=== PATIENT | female | born 1970 | race Caucasian/White ===

== ENCOUNTER → 2018-01-21 10:59 | Outpatient (CLI) | payer BC, SELFPAY ==
--- NOTE | 2018-01-21 | EMB_PTH ---
PATIENT: SOAugust LOC: [facility] U#:[id number] AGE/SX: 54/F ROOM: RE01/21/[address]: Dr. Germán Martínez MD : 1970 BED: DIS: SPEC #: [id number] RECD: 01/22/18 13:23 STATUS: KASH KIKA #: [id number] MARIA DEL ROSARIO: 01/21/18 00:[address]: Germán Martínez DEPT: SURGICAL PATHOLOGY RECD BY: Harjit Wylie Tissues: Endometrium, NOS Procedures: Surgery Specimen Level IV HEADER OPERATION: Endometrial biopsy PRE-OP DIAGNOSIS: N92.0 TISSUE SUBMITTED: Endometrial biopsy MICROSCOPIC DIAGNOSIS Endometrium, biopsy: Weakly proliferative endometrium. No evidence of hyperplasia. AM:joseluis 01/23/18 MICROSCOPIC DESCRIPTION Slides are reviewed. GROSS DESCRIPTION Received in fixative is one container labeled with the patient's name and designated endometrial biopsy. The specimen consists of multiple irregular and elongated fragments of red-pandya soft tissue that in aggregate measure 2.2 x 2 x 0.2 cm. The specimen is totally submitted in one cassette. / AM:joseluis 01/22/18 TC:5 CPT: 74237
[2018-01-24 14:26] LABS: HPV Reflexed? NOT INDICATED
== END ==
PROVIDERS: Visit Provider Obstetrics & Gynecology
DX: Z12.4 Encounter for screening for malignant neoplasm of cervix (principal); N92.0 Excessive and frequent menstruation with regular cycle
CPT/HCPCS: 88175; 88305; G0145

== ENCOUNTER 2018-04-28 07:55 | Day surgery (SDC) | payer BC, SELFPAY ==
[2018-04-23 17:22] LABS: Hematocrit 39.2 % (37-47); Mean Corp Hgb Conc 33.2 g/gl (32-36); Mean Corpuscular Hgb 30.2 pg (27.0-32.0); Mean Platelet Vol. 10.3 fl (6.2-12.0); Platelet Count 301 K/mm3 (150-450); RBC Distribution Width CV 13.1 % (11.6-14.6); Red Blood Count 4.31 M/mm3 (4.2-5.4); White Blood Count 11.2 K/mm3 (4.4-11.0)
[2018-04-23 17:34] LABS: Scan Indicated on CBC? Y/N NO
[2018-04-23 17:36] LABS: Creatinine, Serum 0.91 mg/dL (0.55-1.02); EST Glomerular Filtration Rate 71 mL/min (>60); Est Glom Filt Rate - Afr Amer 86 mL/min (>60)
[2018-04-23 17:55] LABS: International Normalized Ratio 1.1; Prothrombin Time (Protime)PT. 13.8 SECONDS (11.7-14.9)
[2018-04-23 17:56] LABS: Partial Thromboplast Time 27.1 Seconds (24.1-36.2)
--- NOTE | 2018-04-26 14:45 | HP.PCM_ITS ---
History and Physical Date of Admission: 04/28/18 Surgical History and Physical Zahra Rene, a 47 year old female 2 0 0 0 2, presents for RAVH/BSO on April 28, 2018 at 10:30. -- Pelvic pressure, menorrhagia, fibroids s/p HTA -- Menorrhagia which began about a year ago. August claims it started gradually. It occurs intermittently. August characterizes the quality not painful. Severity is moderate and worsening; Associated signs and symptoms are Irregular menses, Menorrhagia. MEDICATIONS HISTORY: Patient is also takin. lisinopril 5 mg Tablet, One pill by mouth once a day 2. metoprolol succinate 50 mg Tablet Extended Release 24 hr, 1/2 tab once daily 3. Lipitor 20 mg tablet, 1 qd ALLERGIES: NKDA Infections - Chicken pox Illnesses - Hypertention Accidents - None Hospitalizations - see surgery Review of Systems: GENERAL - Denies fever, or chills SKIN - Denies skin changes EYES - Denies visual changes EARS - Denies difficulty hearing NOSE - Denies nasal congestion or bleeding MOUTH - Denies sore throat or difficulty swallowing NECK - Denies pain or swelling RESPIRATORY - Denies shortness of breath or wheezing CARDIOVASCULAR - Denies palpitations or chest pain GASTROINTESTINAL - Denies nausea, vomiting, diarrhea, constipation GENITOURINARY - Denies dysuria, frequency of urination, incontinence of urine MUSCULOSKELETAL - Denies joint or muscle pain NEUROLOGICAL - Denies localized numbness or weakness PSYCHIATRIC - Denies depression or anxiety ENDOCRINE - Denies heat or cold intolerance, weight loss or gain HEMATO-IMMUNOLOGIC - Denies excessive bleeding with cuts SOCIAL HISTORY: Alcohol Use - drinks occasionally Smoking - Never Diet - no special diet Lifestyle - moderate stress lifestyle and Exercise - regular Seat Belt Use - always 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 Paternal Grandmother: DM II. MENSTRUAL HISTORY: LMP Known?- YesAmount/Duration - 2-3 days light, Regularity - Irregular, Frequency - variable days, LMP - 02/15/18, Age Onset Menarche - 15 PAST PREGNANCIES: Total Pregnancies - 2; Full Term Pregnancies - 2; Premature - 0; Abortions, Induced - 0; Abortions, Spontaneous - 0; Ectopics - 0; Multiple Births - 0; Living Children - 2 SURGICAL HISTORY: 1. T and A, 1984 2. 12/04/2011 BRIAN ; Germán Martínez M.D. PHYSICAL EXAM BP- 138/84 Sitting, Right arm, regular cuff Weight- 229.10196 lbs Height- 65 inch BMI:38.19 CONSTITUTIONAL - NAD, well nourished, and well developed SKIN - No rash, lesions, or ulcers HEENT - Normocephalic, PERRLA, EOMI NECK - No nodes, no nuchal rigidity and thyroid normal size and texture LYMPH NODES - Palpation of lymph nodes in neck and groins within normal limits LUNGS - CTA x2 without wheezes, crackles or rales CARDIAC - Regular rate and rhythm without rubs, murmurs, or gallops BREAST - No dominant masses, no tenderness, no axillary adenopathy, no nipple discharge, no skin changes ABDOMEN - Without hepatosplenomegaly, distention, masses, rebound, or guarding; normal bowel sounds; no hernias EXTREMITIES - No edema or calf tenderness NEUROLOGICAL - Cranial nerves II-XII grossly intact PSYCHIATRIC - A and O to time, place, person, mood and affect DETAILED PELVIC EXAM External Genital Vagina - non-tender without lesions Urethra/Urethral Meatus - non-tender Bladder - non-tender Vagina - vaginal parsons are pink and moist without loss of rugae and no evidence of atropy Cervix - without cervical motion tenderness and has normal size and features without evident lesions and minimal decensus of uterine cervix Uterus - enlarged uterus 8 wks, wt 125-150g Adnexa - clear without massess or tenderness ASSESSMENT/PLAN: 1. Leiomyoma, Unspec and Menorrhagia S/P endometrial ablation. Fibroids also causing low back pain and pressure symptoms. Pt desires definitive treatment with RAVH/BSO. Discussed RBAs and all questions answered. Also discussed need for HRT for an indefinite period of time.
[2018-04-28] VITALS (11 sets, daily range): BP systolic 109–152; BP diastolic 60–93; PULSE 48–68; RESP 16–18; TEMP 36.3–37.1; O2SAT 92–98; BMI 38.1
[2018-04-28 08:15] LABS: Internal QC Validated? YES +Cl - CLEAR BKGD; Pregnancy, Urine Negative Negative
[2018-04-28 09:06] LABS: Bedside Glucose 115 mg/dL (70-110)
--- NOTE | 2018-04-28 10:10 | HYST_PTH ---
PATIENT: SOAugust LOC: [facility] [place] U#:[id number] AGE/SX: 47/F ROOM: RE04/28/[address]: Dr. Germán Martínez MD : 1970 BED: DIS: 04/29/2018 SPEC #: [id number] RECD: 04/28/18 15:32 STATUS: KASH ANAND #: [id number] MARIA DEL ROSARIO: 04/28/18 10:[address]: Germán Martínez DEPT: SURGICAL PATHOLOGY RECD BY: Familia Alcocer ENTERED: 04/29/18 08:42 SP TYPE: HYSTERECT OTHR DR: Dr. Silas Sam MD Tissues: Uterus, NOS Procedures: Surgery Specimen Level V HEADER OPERATION: Lap robotic hysterectomy, BSO PRE-OP DIAGNOSIS: Leiomyoma, menorrhagia, fibroids TISSUE SUBMITTED: Uterus, cervix, bilateral fallopian tubes and ovaries MICROSCOPIC DIAGNOSIS Uterus, cervix, bilateral fallopian tubes and ovaries, hysterectomy and bilateral salpingo-oophorectomy: Cervix - chronic cystic cervicitis with tunnel cluster formation. Endometrium - proliferative endometrium. Myometrium - intramural and subserosal leiomyomas (largest measuring 3.5 cm in greatest dimension). - Focal adenomyosis. Bilateral fallopian tubes - no pathologic diagnosis. Bilateral ovaries - physiologic follicular cysts. Right paratubal cyst. SJ:joseluis 04/30/18 MICROSCOPIC DESCRIPTION Slides are reviewed. GROSS DESCRIPTION Received in fixative is one container labeled with the patient's name and designated uterus, cervix, bilateral fallopian tubes and ovaries. The specimen consists of a hysterectomy specimen consisting of uterus with cervix and attached bilateral fallopian tubes and ovaries. The uterus with cervix measures 12 x 9 x 6 cm and weighs 252 gm. The serosal surface is pandya, glistening. The ectocervical mucosa is unremarkable. External os is oval in contour. The endocervical canal measures 3 cm in length and the endocervical mucosa is pandya, glistening and unremarkable. Sections of the cervix reveal a few cysts filled with mucoid material. The endometrial cavity is narrow and measures 6 cm in length and up to 0.5 cm in width. Sections of the uterine wall reveal multiple intramural and subserosal nodular masses. The largest mass measures 4 cm in greatest dimension. Sections of these masses reveal pandya whorled cut surfaces without areas of hemorrhage, necrosis or cystic degeneration. Sections of the uterine wall also reveal trabeculated cut surfaces, suspicious for adenomyosis and it measures up to 3.5 cm in thickness. The right fallopian tube measures 9 cm in length and up to 0.8 cm in diameter. The fimbrial end is identified. No tubo-ovarian adhesions are noted. A paratubal cyst is noted measuring 1.5 cm in greatest dimension. The right ovary measures 3 x 3 x 2.5 cm. Sections reveal a cyst filled with pink-red fluid and measuring 2 cm in greatest dimension. A hemorrhagic cyst is also noted measuring 1.5 cm in greatest dimension. The left fallopian tube measures 8 cm in length and 0.7 cm in diameter. Focal tubo-ovarian adhesions are noted. The fimbrial end is identified. Sections of the fallopian tube also show a metallic coiled device in the proximal portion of the tube consistent with Essure device. The left ovary is partly disrupted and measures 3 x 3 x 2 cm. Sections reveal a collapsed hemorrhagic cyst measuring 3 cm in greatest dimension. Cloth Winder Machine Operator sections are submitted in 15 cassettes as follows: 1 - anterior cervix, 2 - posterior cervix, 3 & 4 - anterior uterine wall, 5 & 6 - posterior uterine wall, 7 & 8 - smaller and intermediate sized nodular masses, 9 - largest nodular mass, 10 - right fallopian tube and paratubal cyst, 11 & 12 - right ovary, 13 - left fallopian tube, 14 & 15 - left ovary. / SERG:joseluis 04/29/18 TC:1 CPT: 47428
[2018-04-28] MEDS: Ropivacaine 0.5% 30 ML Vial (11:58)
--- NOTE | 2018-04-28 14:32 | PCM.OPRPT ---
Report of Operation Date of Procedure: 04/28/18 Pre-Operative Diagnosis: Pelvic Pressure, Fibroids, Enlarged Uterus Post-Operative Diagnosis: Pelvic Pressure, Fibroids, Enlarged Uterus, Adhesions Surgery/Procedure Performed:: Robotic Assisted Vaginal Hysterectomy, Bilateral Salpingo-Oophorectomy, Lysis of Adhesions Description of Surgical Findings:: 14 cm fibroid uterus with normal-appearing right adnexa and left adnexa with dense adhesions from the left pelvic sidewall and sigmoid to the left ovary. Dense adhesions of left ovary to posterior aspect of the uterus. Adhesions of the omentum to the left pelvic sidewall and adnexa. barrel charrer helper: Shy Strong barrel charrer helper: Bianca Perez Type of Anesthesia:: General Anesthesiologist: Jg Wolff Specimen's removed: Uterus, bilateral fallopian tubes and ovaries Drains: Greenberg to straight drain Estimated Blood Loss (mL): 100 cc Fluids Replaced: Crystalloid Description of Procedure: Surgeon: Germán Martínez MD, FACOG Indication: This is a 47 year old patient who has been having problems with pelvic pressure and heavy menses despite having a prior endometrial ablation done. Ultrasound shows an enlarged fibroid uterus. Conservative measures have not been helpful. The patient has been counseled regarding the risks, benefits and alternatives of this procedure including the possibility of bleeding, infection, and injury to surrounding structures such as bowel bladder and all questions were answered. She understands that with BSO she may need to be on HRT for an indefinite period of time. Procedure: Pt taken to the operating room where after induction of general anesthesia the patient was prepped and draped in the usual sterile fashion and placed on a non-slip Huggy-u-vac device. Trendendelenburg test was satisfactory. Bladder was drained of urine with a Greenberg catheter which was left in place. Anterior cervix grasped and cervix was dilated to about 3-4 mm. Uterus sounded to 12 cms with a nonmovable posterior and high cervix noted. 0-Vicryl suture was placed at the 3:00 and 9:00 position of the cervix. A medium V-care device was then placed in the uterus to allow uterine manipulation and attention was turned to the laparoscopic portion of the procedure. Ropivocaine 0.5% was injected approximately 3 cm superior to the umbilicus and an 8 mm robotic camera port was introduced directly with intraperitoneal placement confirmed with insufflation. 8 mm robotic side ports were introduced under direct visualization approximately 12 cm lateral and 2 cm inferior to the umbilical port. A 5 mm left upper quadrant port was introduced and airseal insufflation with CO2 was started. The above findings were noted. Robot was docked without difficulty and attention turned to the robotic portion of the procedure. Approximately 30 cc of Ropivicaine was used. Bilateral infundibulocal ligaments/mesosalpinx were ligated with 35 carrillo bipolar coagulation to the level of the round ligament after peeling down adhesions between the left ovary and rectosigmoid. The posterior aspect of the cervix was but we were unable to open this area due to uncertainty of where the V care device was in the vagina. Bladder flap was opened and divided to the level of the round ligaments using monopolar cautery. Progressive bites were then ligated on each side of the cervix with 35 carrillo bipolar cautery to the uterine arteries. The anterior vaginal mucosa was then entered and cervix circumscribed with monopolar cautery. Uterus and attached ovaries and tubes were then removed through the vagina. Vaginal cuff was closed first with 0-Vicryl Candelario stitches placed at each angle followed by closure of the mid-cuff with 0-Monocryl V-lock suture in two layers. Pelvis was copiously irrigated with saline and the right ureter was noted to peristalse. The area of released adhesions were examined. The omental adhesions were cauterized to affect hemostasis and the area of the sigmoid colon and left ovary were examined and irrigated. FloSeal was placed across the 0 to help with the operative hemostasis. Robot was undocked and trocars were removed with as much gas as possible. Incisions were closed with 4-0 Monocryl subcuticular sutures and incisions covered with steri-strips and opsite dressing. The patient tolerated the procedure well and was taken to the recovery room in satisfactory condition. Sponge, instruments and needle counts were all correct. There were no apparent complications of the surgery. Cefotan 2 gms IV was given prior to the procedure. Grafts/Implants Used: None - Complications None - Admit VTE Documentation VTE Present on Admission: Yes VTE Mechan Device Prophylaxis: SCD's VTE Pharm Prophylaxis ordered?: Yes
--- NOTE | 2018-04-28 14:36 | OP.PCM_ITS ---
Report of Operation Date of Procedure: 04/28/18 Pre-Operative Diagnosis: Pelvic Pressure, Fibroids, Enlarged Uterus Post-Operative Diagnosis: Pelvic Pressure, Fibroids, Enlarged Uterus, Adhesions Surgery/Procedure Performed:: Robotic Assisted Vaginal Hysterectomy, Bilateral Salpingo-Oophorectomy, Lysis of Adhesions Description of Surgical Findings:: 14 cm fibroid uterus with normal-appearing right adnexa and left adnexa with dense adhesions from the left pelvic sidewall and sigmoid to the left ovary. Dense adhesions of left ovary to posterior aspect of the uterus. Adhesions of the omentum to the left pelvic sidewall and adnexa. rn clinical coordinator: Shy Strong rn clinical coordinator: Bianca Perez Type of Anesthesia:: General Anesthesiologist: Jg Wolff Specimen's removed: Uterus, bilateral fallopian tubes and ovaries Drains: Greenberg to straight drain Estimated Blood Loss (mL): 100 cc Fluids Replaced: Crystalloid Description of Procedure: Surgeon: Germán Martínez MD, FACOG Indication: This is a 47 year old patient who has been having problems with pelvic pressure and heavy menses despite having a prior endometrial ablation done. Ultrasound shows an enlarged fibroid uterus. Conservative measures have not been helpful. The patient has been counseled regarding the risks, benefits and alternatives of this procedure including the possibility of bleeding, infection, and injury to surrounding structures such as bowel bladder and all questions were answered. She understands that with BSO she may need to be on HRT for an indefinite period of time. Procedure: Pt taken to the operating room where after induction of general anesthesia the patient was prepped and draped in the usual sterile fashion and placed on a non-slip Huggy-u-vac device. Trendendelenburg test was satisfactory. Bladder was drained of urine with a Greenberg catheter which was left in place. Anterior cervix grasped and cervix was dilated to about 3-4 mm. Uterus sounded to 12 cms with a nonmovable posterior and high cervix noted. 0- Vicryl suture was placed at the 3:00 and 9:00 position of the cervix. A medium V-care device was then placed in the uterus to allow uterine manipulation and attention was turned to the laparoscopic portion of the procedure. Ropivocaine 0.5% was injected approximately 3 cm superior to the umbilicus and an 8 mm robotic camera port was introduced directly with intraperitoneal placement confirmed with insufflation. 8 mm robotic side ports were introduced under direct visualization approximately 12 cm lateral and 2 cm inferior to the umbilical port. A 5 mm left upper quadrant port was introduced and airseal insufflation with CO2 was started. The above findings were noted. Robot was docked without difficulty and attention turned to the robotic portion of the procedure. Approximately 30 cc of Ropivicaine was used. Bilateral infundibulocal ligaments/mesosalpinx were ligated with 35 carrillo bipolar coagulation to the level of the round ligament after peeling down adhesions between the left ovary and rectosigmoid. The posterior aspect of the cervix was but we were unable to open this area due to uncertainty of where the V care device was in the vagina. Bladder flap was opened and divided to the level of the round ligaments using monopolar cautery. Progressive bites were then ligated on each side of the cervix with 35 carrillo bipolar cautery to the uterine arteries. The anterior vaginal mucosa was then entered and cervix circumscribed with monopolar cautery. Uterus and attached ovaries and tubes were then removed through the vagina. Vaginal cuff was closed first with 0- Vicryl Candelario stitches placed at each angle followed by closure of the mid-cuff with 0-Monocryl V-lock suture in two layers. Pelvis was copiously irrigated with saline and the right ureter was noted to peristalse. The area of released adhesions were examined. The omental adhesions were cauterized to affect hemostasis and the area of the sigmoid colon and left ovary were examined and irrigated. FloSeal was placed across the 0 to help with the operative hemostasis. Robot was undocked and trocars were removed with as much gas as possible. Incisions were closed with 4-0 Monocryl subcuticular sutures and incisions covered with steri-strips and opsite dressing. The patient tolerated the procedure well and was taken to the recovery room in satisfactory condition. Sponge, instruments and needle counts were all correct. There were no apparent complications of the surgery. Cefotan 2 gms IV was given prior to the procedure. Grafts/Implants Used: None - Complications None - Admit VTE Documentation VTE Present on Admission: Yes VTE Mechan Device Prophylaxis: SCD's VTE Pharm Prophylaxis ordered?: Yes
--- NOTE | 2018-04-28 14:45 | DCINST_ITS ---
Discharge Diet: No Restrictions Discharge Activity: Return to Normal Activity, May Not Drive - while taking narcotic pain medications., May Shower May resume sexual activity in: 6-8 weeks Call your doctor if your incision/area has: Continuous Slow Oozing, Sudden Increased Bleeding, Increased Pain/ Swelling, Increased Redness, Foul Smelling Discharge Call your doctor if you observe: Fever of 101 or Higher, Inability to urinate, Inability to have a bowel movement, Using more than one pad per hour Allergies/Adverse Reactions: Allergies No Known Allergies Allergy (Verified 04/21/18 15:02) Medications to take at Discharge Atorvastatin Calcium [Lipitor] 20 mg PO QHS 04/21/18 Lisinopril [Zestril] 5 mg PO DAILY 04/21/18 Metoprolol Tartrate [Lopressor (Beta Marguerite)] 25 mg PO DAILY 04/21/18 Docusate Sodium [Colace] 100 mg PO BID PRN PRN #60 cap 04/28/18 Estradiol 2 mg PO DAILY #100 tab 04/28/18 Oxycodone [Oxyir] 5 mg PO Q6H PRN PRN 7 Days #20 tab 04/28/18 The following prescriptions were given: Oxycodone [Oxyir] 5 mg PO Q6H PRN PRN 7 Days #20 tab PRN Reason: Severe Pain (-03/05) Docusate Sodium [Colace] 100 mg PO BID PRN PRN #60 cap PRN Reason: Constipation Estradiol 2 mg PO DAILY #100 tab Orders to be completed after discharge: Type & Screen Time Frame: 04/23/18, Location: None Selected Primary Care Physician: Silas Sam [Primary Care Provider] - Test Results: Test results from this visit will be discussed in further detail at your follow- up appointment, if applicable. Please Follow Up With: Germán Martínez MD When: 2-3 weeks
[2018-04-28] MEDS: Dextrose 5%-Lactated Ringers 1,000 ML 150 ML IV ×2 (16:12→22:36)
[2018-04-28] MEDS: 0.9% NaCl Peripheral Flush Adult/Peds IV (17:25)
[2018-04-28] MEDS: Ketorolac 30 MG/ML Syringe IV (17:25)
[2018-04-28] MEDS: Enoxaparin 30 MG/0.3 ML Syringe SC (17:25)
[2018-04-28] MEDS: Atorvastatin Calcium 20 MG Tablet PO (22:36)
[2018-04-29] MEDS: Ketorolac 30 MG/ML Syringe IV (00:19)
[2018-04-29] MEDS: 0.9% NaCl Peripheral Flush Adult/Peds IV (00:20)
[2018-04-29 02:07] VITALS: BP 115/63; PULSE 81; RESP 16; TEMP 36.8; O2SAT 93
[2018-04-29] MEDS: Ketorolac 10 MG Tablet PO (05:45)
[2018-04-29 06:02] LABS: Hematocrit 34.9 % (37-47); Hemoglobin 11.6 g/dl (12.0-15.0); Mean Corp Hgb Conc 33.2 g/gl (32-36); Mean Corpuscular Hgb 30.6 pg (27.0-32.0); Mean Corpuscular Volume 92.1 fL (81-99); Mean Platelet Vol. 10.5 fl (6.2-12.0); Platelet Count 255 K/mm3 (150-450); RBC Distribution Width CV 13.4 % (11.6-14.6); Red Blood Count 3.79 M/mm3 (4.2-5.4); White Blood Count 17.2 K/mm3 (4.4-11.0)
[2018-04-29 06:08] LABS: Scan Indicated on CBC? Y/N NO
[2018-04-29 06:10] LABS: Creatinine, Serum 1.11 mg/dL (0.55-1.02); EST Glomerular Filtration Rate 56 mL/min (>60); Est Glom Filt Rate - Afr Amer 68 mL/min (>60); Estimated Creatinine Clearance 57.59 ml/min
[2018-04-29 06:43] VITALS: O2SAT 93
[2018-04-29 07:08] VITALS: BP 123/70; PULSE 59; RESP 16; TEMP 36.8; O2SAT 96
[2018-04-29 07:14] VITALS: PULSE 59
--- NOTE | 2018-04-29 08:41 | PN.OBGYN_ITS ---
Subjective: Patient without complaints. Tolerating diet well. Positive flatus. Pain well controlled. Minimal vaginal bleeding. - Physical Exam Vital Signs AF, VSS Temp Pulse Resp BP Pulse Ox 98.3 F 59 L 16 123/70 H 96 04/29/18 07:08 04/29/18 07:14 04/29/18 07:08 04/29/18 07:08 04/29/18 07:08 Oxygen Flow Rate (L/min) 1 Oxygen Delivery Method Room Air Weight: 229 lb 4.492 oz Body Mass Index (BMI) 38.1 Intake and Output for Last 24 Hours 04/27/18 04/28/18 04/29/18 23:59 23:59 23:59 Intake Total 3241 / 3241 2726 / 2726 Output Total 1055 / 1055 725 / 725 Balance 2186 / 2186 2000 Laboratory Tests Past 24 Hrs 04/29/18 04/29/18 05:35 05:35 WBC 17.2 H RBC 3.79 L Hgb 11.6 L Hct 34.9 L MCV 92.1 MCH 30.6 MCHC 33.2 RDW 13.4 RDW Differential 44.0 H Plt Count 255 MPV 10.5 Creatinine 1.11 H Estim Creat Clear Calc 57.59 Est GFR (MDRD) Af Amer 68 Est GFR (MDRD) Non-Af 56 L POC Glucose 04/28/18 08:28 POC Glucose 115 H Wounds are clean, dry, intact. Good urine output. Hemoglobin and creatinine okay. Medical Necessity - Tobacco Use Smoking Status: Never smoker Assessment/Plan Doing well postoperative day #1 status post robotic assisted vaginal hysterectomy and bilateral salpingo-oophrectomy. Will release to home with rout ine instructions.
[2018-04-29 09:04] VITALS: PULSE 58
[2018-04-29] MEDS: Lisinopril 5 MG Tablet PO (09:04)
--- OUTSIDE RECORDS SUMMARY | 2018-06-21 07:32 | XMS RPT_ITS ---
:1970 Author Organization OHIP Care Team Providers Name Role Phone Germán Martínez Attending Unavailable Germán Martínez Referring Unavailable Germán Martínez Attending Unavailable Germán Martínez Referring Unavailable Silas Sam Primary Care Unavailable PROBLEMS PROBLEMS DATE TYPE CONDITION / CODE ATTENDING STATUS SOURCE 04/29/2018 Unknown G89.18 - Other acute Germán Martínez postprocedural pain Community / G89.18(ICD-10) Hospital Repository 01/23/2018 Unknown N92.0 - Excessive Germán Martínez and frequent [facility] menstruation with [facility] regular cycle / Repository N92.0(ICD-10) 01/23/2018 Unknown Z12.4 - Encounter Germán Martínez for screening for [facility] malignant neoplasm [facility] cervix / Repository Z12.4(ICD-10) PROCEDURES PROCEDURES No Procedure Records FoundRESULTS RESULTS CBC-COMPLETE BLOOD CNT Collected: 04/29/2018 Status: F Source: CLAUDE NO DIFF 5:35 AM [facility] REPOSITORY TYPE CODE TESTS RESULT OUT OF RANGE REFERENCE UNITS LAB L100.1000 4.4-11.0 K/mm3 High WBC 17.2 LAB L100.1200 4.2-5.4 M/mm3 Low RBC 3.79 LAB L100.1300 12.0-15.0 g/dl Low HGB 11.6 LAB L100.1400 37-47 % Low HCT 34.9 LAB L100.1500 81-99 fL Normal MCV 92.1 LAB L100.1600 27.0-32.0 pg Normal MCH 30.6 LAB L100.1700 32-36 g/gl Normal MCHC 33.2 LAB L100.1810 11.6-14.6 % Normal RDW CV 13.4 LAB L100.1820 35.1-43.9 fl High RDW SD 44.0 LAB L100.1900 150-450 K/mm3 Normal PLT 255 LAB L100.2000 6.2-12.0 fl Normal MPV 10.5 Performed By: #### L100.0500 #### [facility] [address] [place], [address] SERUM CREATININE AND Collected: 04/29/2018 Status: F Source: ERNUL GFR 5:35 AM [facility] REPOSITORY TYPE CODE TESTS RESULT OUT OF RANGE REFERENCE UNITS LAB L501.1100 0.55-1.02 mg/dL High 1.11 CREAT,SERUM Result Comment: The validity of the calculated GFR AND GFRAA in patients over 70 years has not been determined. Clinical correlation is essential. LAB L501.1110 >60 mL/min Low EST GFR 56 Result Comment: Non- GFR Calc LAB L501.1115 >60 mL/min Normal EST GFR - AA 68 Result Comment: GFR Calc LAB L501.1255 ml/min Normal Estimated CRCL 57.59 Performed By: #### L501.1105 #### [facility] [address] [place], [address] DISCHARGE INSTRUCTION Observed: 04/28/2018 Status: F Source: CLAUDE 2:45 PM [facility] REPOSITORY [facility] Medical Records Department [address] [place] [address] Instructions for Home/Discharge Instructions 04/28/18 1444 MR#: [id number] Acct: [id number] Name: SOAugust Rep #: [id number] : 1970 47 From: Germán Martínez MD PCP: Silas Sam MD [place] [facility] [place] Diet: No Restrictions Discharge Activity: Return to Normal Activity, May Not Drive - while taking narcotic pain medications., May Shower May resume sexual activity in: 6-8 weeks Call your doctor if your incision/area has: Continuous Slow Oozing, Sudden Increased Bleeding, Increased Pain/ Swelling, Increased Redness, Foul Smelling Discharge Call your doctor if you observe: Fever of 101 or Higher, Inability to urinate, Inability to have a bowel movement, Using more than one pad per hour Allergies/Adverse Reactions: Allergies No Known Allergies Allergy (Verified 04/21/18 15:02) Medications to take at Discharge Atorvastatin Calcium [Lipitor] 20 mg PO QHS 04/21/18 Lisinopril [Zestril] 5 mg PO DAILY 04/21/18 Metoprolol Tartrate [Lopressor (Beta Marguerite)] 25 mg PO DAILY 04/21/18 Docusate Sodium [Colace] 100 mg PO BID PRN PRN #60 cap 04/28/18 Estradiol 2 mg PO DAILY #100 tab 04/28/18 Oxycodone [Oxyir] 5 mg PO Q6H PRN PRN 7 Days #20 tab 04/28/18 The following prescriptions were given: Oxycodone [Oxyir] 5 mg PO Q6H PRN PRN 7 Days #20 tab PRN Reason: Severe Pain (6-03/05) Docusate Sodium [Colace] 100 mg PO BID PRN PRN #60 cap PRN Reason: Constipation Estradiol 2 mg PO DAILY #100 tab Orders to be completed after discharge: Type AND Screen Time Frame: 04/23/18, Location: None Selected Primary Care Physician: Silas Sam [Primary Care Provider] - Test Results: Test results from this visit will be discussed in further detail at your follow-up appointment, if applicable. Please Follow Up With: Germán Martínez MD When: 2-3 weeks 04/28/18 1445 <Electronically signed by Germán Martínez MD> Date Germán Martínez MD CC: Silas Sam MD OPERATIVE REPORT Observed: 04/28/2018 Status: F Source: ERNUL 2:44 PM [facility] REPOSITORY [facility] Medical Records Department [address] [place] [address] Operative Report 04/28/18 1432 MR#: [id number] Acct: [id number] Name: SOZAHRA Wisam Rep #: [id number] : 1970 47 From: Germán Martínez MD PCP: Silas Sam MD Status: [facility] Y Location: MS2 ZL211-2 Report of Operation Date of Procedure: 04/28/18 Pre-Operative Diagnosis: Pelvic Pressure, Fibroids, Enlarged Uterus Post-Operative Diagnosis: Pelvic Pressure, Fibroids, Enlarged Uterus, Adhesions Surgery/Procedure Performed:: Robotic Assisted Vaginal Hysterectomy, Bilateral Salpingo-Oophorectomy, Lysis of Adhesions Description of Surgical Findings:: 14 cm fibroid uterus with normal-appearing right adnexa and left adnexa with dense adhesions from the left pelvic sidewall and sigmoid to the left ovary. Dense adhesions of left ovary to posterior aspect of the uterus. Adhesions of the omentum to the left pelvic sidewall and adnexa. casing blower: Shy Strong casing blower: Bianca Perez Type of Anesthesia:: General Anesthesiologist: Jg Wolff Specimen's removed: Uterus, bilateral fallopian tubes and ovaries Drains: Greenberg to straight drain Estimated Blood Loss (mL): 100 cc Fluids Replaced: Crystalloid Description of Procedure: Surgeon: Germán Martínez MD, FACOG Indication: This is a 47 year old patient who has been having problems with pelvic pressure and heavy menses despite having a prior endometrial ablation done. Ultrasound shows an enlarged fibroid uterus. Conservative measures have not been helpful. The patient has been counseled regarding the risks, benefits and alternatives of this procedure including the possibility of bleeding, infection, and injury to surrounding structures such as bowel bladder and all questions were answered. She understands that with BSO she may need to be on HRT for an indefinite period of time. Procedure: Pt taken to the operating room where after induction of general anesthesia the patient was prepped and draped in the usual sterile fashion and placed on a non-slip Huggy-u-vac device. Trendendelenburg test was satisfactory. Bladder was drained of urine with a Greenberg catheter which was left in place. Anterior cervix grasped and cervix was dilated to about 3-4 mm. Uterus sounded to 12 cms with a nonmovable posterior and high cervix noted. 0-Vicryl suture was placed at the 3:00 and 9:00 position of the cervix. A medium V-care device was then placed in the uterus to allow uterine manipulation and attention was turned to the laparoscopic portion of the procedure. Ropivocaine 0.5% was injected approximately 3 cm superior to the umbilicus and an 8 mm robotic camera port was introduced directly with intraperitoneal placement confirmed with insufflation. 8 mm robotic side ports were introduced under direct visualization approximately 12 cm lateral and 2 cm inferior to the umbilical port. A 5 mm left upper quadrant port was introduced and airseal insufflation with CO2 was started. The above findings were noted. Robot was docked without difficulty and attention turned to the robotic portion of the procedure. Approximately 30 cc of Ropivicaine was used. Bilateral infundibulocal ligaments/mesosalpinx were ligated with 35 carrillo bipolar coagulation to the level of the round ligament after peeling down adhesions between the left ovary and rectosigmoid. The posterior aspect of the cervix was but we were unable to open this area due to uncertainty of where the V care device was in the vagina. Bladder flap was opened and divided to the level of the round ligaments using monopolar cautery. Progressive bites were then ligated on each side of the cervix with 35 carrillo bipolar cautery to the uterine arteries. The anterior vaginal mucosa was then entered and cervix circumscribed with monopolar cautery. Uterus and attached ovaries and tubes were then removed through the vagina. Vaginal cuff was closed first with 0-Vicryl Candelario stitches placed at each angle followed by closure of the mid-cuff with 0-Monocryl V-lock suture in two layers. Pelvis was copiously irrigated with saline and the right ureter was noted to peristalse. The area of released adhesions were examined. The omental adhesions were cauterized to affect hemostasis and the area of the sigmoid colon and left ovary were examined and irrigated. FloSeal was placed across the 0 to help with the operative hemostasis. Robot was undocked and trocars were removed with as much gas as possible. Incisions were closed with 4-0 Monocryl subcuticular sutures and incisions covered with steri-strips and opsite dressing. The patient tolerated the procedure well and was taken to the recovery room in satisfactory condition. Sponge, instruments and needle counts were all correct. There were no apparent complications of the surgery. Cefotan 2 gms IV was given prior to the procedure. Grafts/Implants Used: None - Complications None - Admit VTE Documentation VTE Present on Admission: Yes VTE Mechan Device Prophylaxis: SCD's VTE Pharm Prophylaxis ordered?: Yes 04/28/18 5118 <Electronically signed by Germán Martínez MD> Date Germán Martínez MD CC: Gremán Martínez MD; Silas Sam MD Signed HYSTERECTOMY SPECIMEN Observed: 04/28/2018 Status: F Source: CLAUDE 10:10 AM [facility] REPOSITORY Patient: SO : 1970 (47/F) Acct Num: [id number] Phys: Mauricio ROBERSON,Germán Unit Num: [id number] [place] [facility] Specimen: [id number] Received: 04/28/181531 Spec Type: HYSTERECT TISSUES 1 TISSUES: Uterus, NOS GROSS DESCRIPTION Received in fixative is one container labeled with the patient's name and designated uterus, cervix, bilateral fallopian tubes and ovaries. The specimen consists of a hysterectomy specimen consisting of uterus with cervix and attached bilateral fallopian tubes and ovaries. The uterus with cervix measures 12 x 9 x 6 cm and weighs 252 gm. The serosal surface is pandya, glistening. The ectocervical mucosa is unremarkable. External os is oval in contour. The endocervical canal measures 3 cm in length and the endocervical mucosa is pandya, glistening and unremarkable. Sections of the cervix reveal a few cysts filled with mucoid material. The endometrial cavity is narrow and measures 6 cm in length and up to 0.5 cm in width. Sections of the uterine wall reveal multiple intramural and subserosal nodular masses. The largest mass measures 4 cm in greatest dimension. Sections of these masses reveal pandya whorled cut surfaces without areas of hemorrhage, necrosis or cystic degeneration. Sections of the uterine wall also reveal trabeculated cut surfaces, suspicious for adenomyosis and it measures up to 3.5 cm in thickness. The right fallopian tube measures 9 cm in length and up to 0.8 cm in diameter. The fimbrial end is identified. No tubo-ovarian adhesions are noted. A paratubal cyst is noted measuring 1.5 cm in greatest dimension. The right ovary measures 3 x 3 x 2.5 cm. Sections reveal a cyst filled with pink-red fluid and measuring 2 cm in greatest dimension. A hemorrhagic cyst is also noted measuring 1.5 cm in greatest dimension. The left fallopian tube measures 8 cm in length and 0.7 cm in diameter. Focal tubo-ovarian adhesions are noted. The fimbrial end is identified. Sections of the fallopian tube also show a metallic coiled device in the proximal portion of the tube consistent with Essure device. The left ovary is partly disrupted and measures 3 x 3 x 2 cm. Sections reveal a collapsed hemorrhagic cyst measuring 3 cm in greatest dimension. Ballast Regulator Operator sections are submitted in 15 cassettes as follows: 1 - anterior cervix, 2 - posterior cervix, 3 AND 4 - anterior uterine wall, 5 AND 6 - posterior uterine wall, 7 AND 8 - smaller and intermediate sized nodular masses, 9 - largest nodular mass, 10 - right fallopian tube and paratubal cyst, 11 AND 12 - right ovary, 13 - left fallopian tube, 14 AND 15 - left ovary. / SERG:joseluis 04/29/18 TC:1 CPT: 60218 HEADER OPERATION: Lap robotic hysterectomy, BSO PRE-OP DIAGNOSIS: Leiomyoma, menorrhagia, fibroids TISSUE SUBMITTED: Uterus, cervix, bilateral fallopian tubes and ovaries MICROSCOPIC DESCRIPTION Slides are reviewed. MICROSCOPIC DIAGNOSIS Uterus, cervix, bilateral fallopian tubes and ovaries, hysterectomy and bilateral salpingo-oophorectomy: Cervix - chronic cystic cervicitis with tunnel cluster formation. Endometrium - proliferative endometrium. Myometrium - intramural and subserosal leiomyomas (largest measuring 3.5 cm in greatest dimension). - Focal adenomyosis. Bilateral fallopian tubes - no pathologic diagnosis. Bilateral ovaries - physiologic follicular cysts. Right paratubal cyst. SJ:joseluis 04/30/18 Signed Michael Carlson 04/30/18 <signature on file> Performed By: #### PHYST #### [facility] [address] [place], [address] BEDSIDE GLUCOSE Collected: 04/28/2018 Status: F Source: CLAUDE 8:28 AM [facility] REPOSITORY TYPE CODE TESTS RESULT OUT OF REFERENCE UNITS RANGE LAB L501.080 70-110 mg/dL High BEDSIDE GLU 115 Result Comment: MANAGEMENT OF PATIENT CARE PER NURSING PROTOCOL Performed By: #### L501.080 #### [facility] Point of Care [address] [place] [address] ,URINE Collected: 04/28/2018 Status: F Source: ERNUL 8:05 AM [facility] REPOSITORY Order Comment: Reason for Laboratory Test PRE OP TYPE CODE TESTS RESULT OUT OF REFERENCE UNITS RANGE LAB L400.8000 Negative Normal HCGUQUAL Negative Result Comment: Very dilute urine specimens, as indicated by a low specific gravity, may not contain consumer sales representative levels of hCG. If is still suspected, a first morning urine specimen should be collected 48 hours later and tested. Performed By: #### L400.7600 #### [facility] [address] [facility] [place], [address] HISTORY AND PHYSICAL Observed: 04/26/2018 Status: F Source: CLAUDE EXAM 2:45 PM [facility] REPOSITORY [facility] Medical Records Department [address] [facility] [address] History and Physical 04/26/18 1443 MR#: [id number] Acct: [id number] Name: ZAHRA RIZZO Rep #: [id number] : 1970 47 From: Germán Martínez MD PCP: Silas Sam MD Status: [facility] [place] [facility] History and Physical Date of Admission: 04/28/18 Surgical History and Physical Zahra Rizzo, a 47 year old female 2 0 0 0 2, presents for RAVH/BSO on April 28, 2018 at 10:30. -- Pelvic pressure, menorrhagia, fibroids s/p HTA -- Menorrhagia which began about a year ago. August claims it started gradually. It occurs intermittently. August characterizes the quality not painful. Severity is moderate and worsening; Associated signs and symptoms are Irregular menses, Menorrhagia. MEDICATIONS HISTORY: Patient is also takin. lisinopril 5 mg Tablet, One pill by mouth once a day 2. metoprolol succinate 50 mg Tablet Extended Release 24 hr, 1/2 tab once daily 3. Lipitor 20 mg tablet, 1 qd ALLERGIES: NKDA Infections - Chicken pox Illnesses - Hypertention Accidents - None Hospitalizations - see surgery Review of Systems: GENERAL - Denies fever, or chills SKIN - Denies skin changes EYES - Denies visual changes EARS - Denies difficulty hearing NOSE - Denies nasal congestion or bleeding MOUTH - Denies sore throat or difficulty swallowing NECK - Denies pain or swelling RESPIRATORY - Denies shortness of breath or wheezing CARDIOVASCULAR - Denies palpitations or chest pain GASTROINTESTINAL - Denies nausea, vomiting, diarrhea, constipation GENITOURINARY - Denies dysuria, frequency of urination, incontinence of urine MUSCULOSKELETAL - Denies joint or muscle pain NEUROLOGICAL - Denies localized numbness or weakness PSYCHIATRIC - Denies depression or anxiety ENDOCRINE - Denies heat or cold intolerance, weight loss or gain HEMATO-IMMUNOLOGIC - Denies excessive bleeding with cuts SOCIAL HISTORY: Alcohol Use - drinks occasionally Smoking - Never Diet - no special diet Lifestyle - moderate stress lifestyle and Exercise - regular Seat Belt Use - always 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 Paternal Grandmother: DM II. MENSTRUAL HISTORY: LMP Known?- YesAmount/Duration - 2-3 days light, Regularity - Irregular, Frequency - variable days, LMP - 02/15/18, Age Onset Menarche - 15 PAST PREGNANCIES: Total Pregnancies - 2; Full Term Pregnancies - 2; Premature - 0; Abortions, Induced - 0; Abortions, Spontaneous - 0; Ectopics - 0; Multiple Births - 0; Living Children - 2 SURGICAL HISTORY: 1. T and A, 1984 2. 12/04/2011 [facility] ; Germán Martínez M.D. PHYSICAL EXAM BP- 138/84 Sitting, Right arm, regular cuff Weight- 229.79038 lbs Height- 65 inch BMI:38.19 CONSTITUTIONAL - NAD, well nourished, and well developed SKIN - No rash, lesions, or ulcers HEENT - Normocephalic, PERRLA, EOMI NECK - No nodes, no nuchal rigidity and thyroid normal size and texture LYMPH NODES - Palpation of lymph nodes in neck and groins within normal limits LUNGS - CTA x2 without wheezes, crackles or rales CARDIAC - Regular rate and rhythm without rubs, murmurs, or gallops BREAST - No dominant masses, no tenderness, no axillary adenopathy, no nipple discharge, no skin changes ABDOMEN - Without hepatosplenomegaly, distention, masses, rebound, or guarding; normal bowel sounds; no hernias EXTREMITIES - No edema or calf tenderness NEUROLOGICAL - Cranial nerves II-XII grossly intact PSYCHIATRIC - A and O to time, place, person, mood and affect DETAILED PELVIC EXAM External Genital Vagina - non-tender without lesions Urethra/Urethral Meatus - non-tender Bladder - non-tender Vagina - vaginal parsons are pink and moist without loss of rugae and no evidence of atropy Cervix - without cervical motion tenderness and has normal size and features without evident lesions and minimal decensus of uterine cervix Uterus - enlarged uterus 8 wks, wt 125-150g Adnexa - clear without massess or tenderness ASSESSMENT/PLAN: 1. Leiomyoma, Unspec and Menorrhagia S/P endometrial ablation. Fibroids also causing low back pain and pressure symptoms. Pt desires definitive treatment with RAVH/BSO. Discussed RBAs and all questions answered. Also discussed need for HRT for an indefinite period of time. 04/26/18 1445 <Electronically signed by Germán Martínez MD> Date Germán Martínez MD Cosigner Signature: Date (if applicable) CC: Germán Martínez MD; Silas Sam MD Signed CBC-COMPLETE BLOOD CNT Collected: 04/23/2018 Status: F Source: CLAUDE NO DIFF 4:55 PM [facility] REPOSITORY Order Comment: Reason for Laboratory Test PRE OP TYPE CODE TESTS RESULT OUT OF RANGE REFERENCE UNITS LAB L100.1000 4.4-11.0 K/mm3 High WBC 11.2 LAB L100.1200 4.2-5.4 M/mm3 Normal RBC 4.31 LAB L100.1300 12.0-15.0 g/dl Normal HGB 13.0 LAB L100.1400 37-47 % Normal HCT 39.2 LAB L100.1500 81-99 fL Normal MCV 91.0 LAB L100.1600 27.0-32.0 pg Normal MCH 30.2 LAB L100.1700 32-36 g/gl Normal MCHC 33.2 LAB L100.1810 11.6-14.6 % Normal RDW CV 13.1 LAB L100.1820 35.1-43.9 fl Normal RDW SD 43.0 LAB L100.1900 150-450 K/mm3 Normal PLT 301 LAB L100.2000 6.2-12.0 fl Normal MPV 10.3 Performed By: #### L100.0500 #### [facility] [address] [place], [place], [id number] SERUM CREATININE AND Collected: 04/23/2018 Status: F Source: ERNUL GFR 4:55 PM [facility] REPOSITORY Order Comment: Reason for Laboratory Test PRE OP TYPE CODE TESTS RESULT OUT OF RANGE REFERENCE UNITS LAB L501.1100 0.55-1.02 mg/dL Normal 0.91 CREAT,SERUM Result Comment: The validity of the calculated GFR AND GFRAA in patients over 70 years has not been determined. Clinical correlation is essential. LAB L501.1110 >60 mL/min Normal EST GFR 71 Result Comment: Non- GFR Calc LAB L501.1115 >60 mL/min Normal EST GFR - AA 86 Result Comment: GFR Calc Performed By: #### L501.1105 #### [facility] [address] [place], [place], [id number] PROTHROMBIN TIME W/INR Collected: 04/23/2018 Status: F Source: ERNUL 4:55 PM [facility] REPOSITORY Order Comment: Reason for Laboratory Test PRE OP TYPE CODE TESTS RESULT OUT OF RANGE REFERENCE UNITS LAB L300.4150 11.7-14.9 SECONDS Normal PROTIME 13.8 LAB L300.4200 Normal INR 1.1 Performed By: #### L300.3900, L300.4310 #### [facility] [address] [place], [place], [id number] PARTIAL THROMBOPLAST Collected: 04/23/2018 Status: F Source: CLAUDE TIME 4:55 PM [facility] REPOSITORY Order Comment: Reason for Laboratory Test PRE OP TYPE CODE TESTS RESULT OUT OF RANGE REFERENCE UNITS LAB L300.4310 24.1-36.2 Seconds Normal PTT 27.1 Performed By: #### L300.3900, L300.4310 #### [facility] [address] [place], [address] TYPE AND SCREEN Collected: 04/23/2018 Status: F Source: CLAUDE 4:55 PM [facility] REPOSITORY Order Comment: Surgery Date: 04/28/18 Hx of Preganancy in last 3 Months No Ever experience any problems with transfusion(s)? N Hx of Transfusion in last 3 Months N Reason for Type AND Screen/Red Cells: SURGERY Time: 0600 SURGICAL PROCEDURE: UNK TYPE CODE TESTS RESULT OUT OF RANGE REFERENCE UNITS LAB B10.0800 O Normal BLOOD TYPE GEL POSITIVE LAB B100.4000 Normal Antibody NEGATIVE Screen Performed By: #### B101.7475 #### [facility] [address] 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 of containers..01 ThinPrep Vial TYPE CODE TESTS RESULT OUT OF RANGE REFERENCE UNITS LAB L7400.0800 . Normal DIAGN Comment Result Comment: NEGATIVE FOR INTRAEPITHELIAL LESION AND MALIGNANCY. LAB L7400.0900 . Normal ADEQ Comment Result Comment: Satisfactory for evaluation. No endocervical component is identified. LAB L7400.1400 . Normal PERFORM Comment Result Comment: Akshat Sampson, Educational Manager (ASCP) LAB L7400.2575 . Normal TEST METHOD Comment Result Comment: This liquid based ThinPrep(R) pap test was screened with the use of an image guided system. LAB L7400.2600 . Normal . COMM LAB L7400.2700 . Normal PAPSMR Comment Result Comment: The Pap smear is a screening test designed to aid in the detection of premalignant and malignant conditions of the uterine cervix. It is not a diagnostic procedure and should not be used as the sole means of detecting cervical cancer. Both false-positive and false-negative reports do occur. LAB L7400.2800 . Normal HPV RFLX Comment Result Comment: The HPV DNA reflex criteria were not met with this specimen result therefore, no HPV testing was performed. Performed at: - [facility] [id number] Estate Tax Examiner: Brunilda Copeland MD, Phone: [phone] Performed By: #### L7400.0357 #### [facility] (refer to report for specific site) refer to report for address and phone number ENDOMETRIAL BX/CURETTINGS Observed: 01/21/2018 Status: F Source: ERNUL 12:00 AM [facility] REPOSITORY Patient: SO : 1970 (47/F) Acct Num: [id number] Phys: Mauricio ROBERSON,[facility] Num: [id number] Loc: LABSPEC Specimen: [id number] Received: 01/22/18 - 3 Spec Type: ENDOM BX/C TISSUES TISSUES: Endometrium, NOS GROSS DESCRIPTION Received in fixative is one container labeled with the patient's name and designated endometrial biopsy. The specimen consists of multiple irregular and elongated fragments of red-pandya soft tissue that in aggregate measure 2.2 x 2 x 0.2 cm. The specimen is totally submitted in one cassette. / AM:joseluis 01/22/18 TC:5 CPT: 32509 HEADER OPERATION: Endometrial biopsy PRE-OP DIAGNOSIS: N92.0 TISSUE SUBMITTED: Endometrial biopsy MICROSCOPIC DESCRIPTION Slides are reviewed. MICROSCOPIC DIAGNOSIS Endometrium, biopsy: Weakly proliferative endometrium. No evidence of hyperplasia. AM:joseluis 01/23/18 Signed Jose Carlos Nathan 01/23/18 <signature on file> Performed By: #### PEMB #### [facility] [address] [place], [address] ALLERGIES ALLERGIES DATE TYPE / CODE NAME / CODE REACTION SEVERITY SOURCE 04/21/2018 Drug No Known Unknown [facility] Allergy/4160 Allergies/F00 [facility] [address](SNOMED [id number](RXNOR Repository CT) M) ENCOUNTERS ENCOUNTERS ADMIT/DISCHARGE ACCOUNT ADMITTING ENCOUNTER LOCATION SOURCE NUMBER CLASS 04/28/2018/ [id number] Ambulatory [place] [address] 4 [facility] ing:SDCRoom: Repository [id number] 01/21/2018 [id number] Ambulatory [place] 7 [facility] ing:LABSPEC Repository PAYERS PAYERS ENCOUNTER GUARANTOR PAYER SUBSCRIBER SOURCE 04/28/2018August D Primary DEMETRIA [id number] Insurance:ANTHEMPolic SCHONAUERDOB: Community CR y Number: [id number] [place]ository [place] [id number]: ariella Date:[id number] [address] [place] [address]) [id number]: 04/28/2018 Secondary NOT GIVENUNK [place] Insurance:SELF PAY [facility] Number: Effective Repository Date:2018-03-06 01/21/2018 ZAHRA Primary DEMETRIA [id number] Insurance:ANTHEMPolic SCHONAUERUNK Community CR y Number: [id number] Repository [place] [address]Rns: . ariella Date:[id number] () [address], [place] [address]MN: 01/21/2018 Secondary NOT GIVENUNK [place] Insurance:SELF PAY [facility] Number: Effective Repository Date:2018-01-21
== END 2018-04-29 11:50 | disposition home or self-care (01) ==
LOC: SDC 07:56 → AC 07:57 → MS2 11:04
PROVIDERS: Anesthesiology; Family Provider Family Medicine; PCP Family Medicine; Referring Provider Obstetrics & Gynecology; Visit Provider Obstetrics & Gynecology
PROC: 0UT94ZZ Resection of Uterus, Percutaneous Endoscopic Approach (ICD-10-PCS; CPT 58554; principal; 2018-04-28 09:50)
DX: D25.1 Intramural leiomyoma of uterus (principal); D25.2 Subserosal leiomyoma of uterus; N72 Inflammatory disease of cervix uteri; N80.0 Endometriosis of uterus; N83.02 Follicular cyst of left ovary; N83.01 Follicular cyst of right ovary; N83.8 Other noninflammatory disorders of ovary, fallopian tube and broad ligament; I10 Essential (primary) hypertension; Z79.899 Other long term (current) drug therapy; E78.00 Pure hypercholesterolemia, unspecified
CPT/HCPCS: 00840; 58554; S2900; 36415; 81025; 82565; 82962; 85027; 85610; 85730; 86850; 86900; 88307; J7120; A4216; J2405